=== PATIENT | female | born 1965 | race Two or more races ===

== ENCOUNTER 2018-11-14 09:22 | Inpatient (IN) | payer OTHER ==
[~2018-11-14] VITALS: Ht 172.7 cm; Wt 89.1 kg
[2018-11-14 09:34] VITALS: Ht 172.7 cm; Wt 89.1 kg
[2018-11-14 10:00] LABS: BASOPHIL % 0.3 % (0-2); PLATELET COUNT 389 x10^3mcL (130-400); RED CELL DISTRIBUTION WIDTH 13.7 % (11.5-14.5)
[2018-11-14 10:19] LABS: ALBUMIN 4.2 g/dL (3.4-5.0); BILIRUBIN TOTAL 0.45 mg/dL (0.20-1.00); CALCIUM 9.1 mg/dL (8.5-10.1); CARBON DIOXIDE 23.2 mmol/L (21-32); CREATININE SERUM 1.1 mg/dL (0.6-1.0)
[2018-11-14 10:37] LABS: POTASSIUM SERUM 2.9 mmol/L (3.5-5.1)
[2018-11-14] MEDS ORDERED: HUMULIN R100 U/1 M1 IJ (12:35)
[2018-11-14] MEDS ORDERED: METFORMIN500 M1 PO (12:35)
[2018-11-14] MEDS ORDERED: LANTUS SOLOS100 U/M1 SQ (12:36)
[2018-11-14] MEDS ORDERED: MS CONTIN30 M1 PO (12:36)
[2018-11-14] MEDS ORDERED: XANAX1 MG PO (12:36)
[2018-11-14] MEDS ORDERED: PERCOCET1 TA5 PO (12:37)
[2018-11-14] MEDS ORDERED: ZESTRIL20 MG PO (12:37)
[2018-11-14] MEDS ORDERED: TRAZODONE100 MG PO (12:38)
[2018-11-14] MEDS ORDERED: PROZAC20 MG PO (12:38)
[2018-11-14] MEDS ORDERED: NEURONTIN400 MG PO (12:38)
[2018-11-14] MEDS ORDERED: TIZANIDINE HCL4 MG PO (12:39)
[2018-11-14 12:47] LABS: MAGNESIUM 1.7 mg/dL (1.8-2.4); PHOSPHOROUS 3.8 mg/dL (2.5-4.9)
[2018-11-14 12:48] LABS: CHOLESTEROL/HDL RATIO 5.4
[2018-11-14 12:52] LABS: T3 TOTAL 0.8 ng/mL
[2018-11-14 12:55] LABS: FREE T4 1.03 ng/dL (0.76-1.46); T4(THYROXINE) 8.4 ug/dL (4.7-13.3)
[2018-11-14 13:58] VITALS: BP 140/70
[2018-11-14 15:26] LABS: microscopic required? NO
[2018-11-14 15:36] LABS: UA SPECIFIC GRAVITY 1.015 (1.005-1.035); urine erythrocyte NEGATIVE (NEGATIVE)
[2018-11-14 15:53] LABS: AMPHETAMINE QUAL UR POSITIVE (See below)
[2018-11-14 16:04] VITALS: BP 172/98
[2018-11-14 17:47] VITALS: BP 154/118
[2018-11-14 20:38] VITALS: BP 130/63
[2018-11-15 05:16] VITALS: BP 111/69
[2018-11-15 06:19] LABS: BASOPHIL % 0.3 % (0-2); PLATELET COUNT 309 x10^3mcL (130-400); RED CELL DISTRIBUTION WIDTH 13.8 % (11.5-14.5)
[2018-11-15 06:34] LABS: CALCIUM 8.6 mg/dL (8.5-10.1); CARBON DIOXIDE 26.4 mmol/L (21-32); CHLORIDE SERUM 104 mmol/L (98-107); CREATININE SERUM 0.8 mg/dL (0.6-1.0); GFR1 > 60 mL/min; GLUCOSE SERUM 150 mg/dL (74-106); MAGNESIUM 1.6 mg/dL (1.8-2.4); POTASSIUM SERUM 3.8 mmol/L (3.5-5.1); SODIUM SERUM 139 mmol/L (136-145)
[2018-11-15 12:49] VITALS: BP 111/69
== END 2018-11-15 13:40 | disposition home or self-care (01) | DRG 251 ==
LOC: ED 09:22 → DU 12:10
PROVIDERS: Emergency Medicine; Internal Medicine
DX: R10.11 Right upper quadrant pain (principal); E11.65 Type 2 diabetes mellitus with hyperglycemia; E87.6 Hypokalemia; R11.2 Nausea with vomiting, unspecified; E83.42 Hypomagnesemia; F15.10 Other stimulant abuse, uncomplicated; F11.10 Opioid abuse, uncomplicated; F32.9 Major depressive disorder, single episode, unspecified; I10 Essential (primary) hypertension; F41.1 Generalized anxiety disorder; Z79.4 Long term (current) use of insulin; Z86.73 Personal history of transient ischemic attack (TIA), and cerebral infarction without residual deficits; Z90.49 Acquired absence of other specified parts of digestive tract; E78.5 Hyperlipidemia, unspecified; Z79.899 Other long term (current) drug therapy
CPT/HCPCS: 82962; 83880; 84439; J1885; J2270; J2405; J3480; J7030; J7050; Q0092

== ENCOUNTER 2019-01-08 13:12 | Emergency (ER) | payer OTHER ==
[~2019-01-08] VITALS: Ht 175.3 cm; Wt 91.2 kg
[~2019-01-08 13:12] MED LIST: HUMULIN R100 U/1 M1 IJ; LANTUS SOLOS100 U/M1 SQ; METFORMIN500 M1 PO; MS CONTIN30 M1 PO; NEURONTIN400 MG PO; PERCOCET1 TA5 PO; PROZAC20 MG PO; TIZANIDINE HCL4 MG PO; TRAZODONE100 MG PO; XANAX1 MG PO; ZESTRIL20 MG PO
[2019-01-08 14:17] VITALS: Ht 175.3 cm; Wt 91.2 kg
[2019-01-08 14:54] LABS: BASOPHIL % 0.4 % (0-2); PLATELET COUNT 340 x10^3mcL (130-400); RED CELL DISTRIBUTION WIDTH 13.9 % (11.5-14.5)
[2019-01-08 15:04] LABS: CALCIUM 9.2 mg/dL (8.5-10.1); CARBON DIOXIDE 25.5 mmol/L (21-32); CHLORIDE SERUM 103 mmol/L (98-107); CREATININE SERUM 0.7 mg/dL (0.6-1.0); GFR1 > 60 mL/min; GLUCOSE SERUM 159 mg/dL (74-106); POTASSIUM SERUM 3.7 mmol/L (3.5-5.1); SODIUM SERUM 138 mmol/L (136-145)
[2019-01-08 15:10] LABS: ALBUMIN 3.6 g/dL (3.4-5.0); ALKALINE PHOSPHATASE 73 U/L (46-116); ALT/SGPT 16 U/L (14-59); AST/SGOT 9 U/L (15-37); BILIRUBIN TOTAL 0 mg/dL (0.20-1.00); LIPASE 102 IU/L (73-393)
[2019-01-08 15:11] LABS: TOTAL PROTEIN, SERUM 8.6 g/dL (6.4-8.2)
[2019-01-08 17:44] VITALS: BP 118/65
== END 2019-01-08 17:44 | disposition home or self-care (01) ==
LOC: ED 13:12
PROVIDERS: Emergency Medicine
DX: R10.11 Right upper quadrant pain (principal); K52.9 Noninfective gastroenteritis and colitis, unspecified; I10 Essential (primary) hypertension; E11.9 Type 2 diabetes mellitus without complications; Z90.49 Acquired absence of other specified parts of digestive tract; Z86.73 Personal history of transient ischemic attack (TIA), and cerebral infarction without residual deficits
CPT/HCPCS: J1885; J2270; J2405; J7030

== ENCOUNTER 2019-03-02 10:16 | Emergency (ER) | payer OTHER ==
[~2019-03-02] VITALS: Ht 172.7 cm; Wt 96.4 kg
[2019-03-02 10:24] VITALS: BP 143/97; Ht 172.7 cm; Wt 96.4 kg
[2019-03-02 11:14] LABS: BASOPHIL % 0.4 % (0-2); PLATELET COUNT 315 x10^3mcL (130-400); RED CELL DISTRIBUTION WIDTH 13.9 % (11.5-14.5)
[2019-03-02 11:19] LABS: CALCIUM 9.2 mg/dL (8.5-10.1); CARBON DIOXIDE 27.5 mmol/L (21-32); CHLORIDE SERUM 101 mmol/L (98-107); CREATININE SERUM 0.7 mg/dL (0.6-1.0); GFR1 > 60 mL/min; GLUCOSE SERUM 197 mg/dL (74-106); POTASSIUM SERUM 3.6 mmol/L (3.5-5.1); SODIUM SERUM 138 mmol/L (136-145)
[2019-03-02 11:24] LABS: ALBUMIN 3.7 g/dL (3.4-5.0); ALKALINE PHOSPHATASE 71 U/L (46-116); ALT/SGPT 16 U/L (14-59); AST/SGOT 12 U/L (15-37); BILIRUBIN TOTAL 0.26 mg/dL (0.20-1.00); LIPASE 79 IU/L (73-393)
== END 2019-03-02 11:32 | disposition home or self-care (01) ==
LOC: ED 10:16
PROVIDERS: Emergency Medicine
DX: R10.11 Right upper quadrant pain (principal); R11.0 Nausea; F17.210 Nicotine dependence, cigarettes, uncomplicated; I10 Essential (primary) hypertension; E11.9 Type 2 diabetes mellitus without complications; F20.9 Schizophrenia, unspecified; F32.9 Major depressive disorder, single episode, unspecified; F41.9 Anxiety disorder, unspecified; M19.90 Unspecified osteoarthritis, unspecified site; Z98.890 Other specified postprocedural states
CPT/HCPCS: 36415; 99406